=== PATIENT | female | born 1990 | race Caucasian/White ===

== ENCOUNTER 2017-01-12 20:31 | Emergency (ER) | payer OTHER ==
[2017-01-12 20:44] VITALS: TEMP 98.2
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
[2017-01-12 22:23] VITALS: BP 114/77; PULSE 69; RESP 16; O2SAT 95
== END 2017-01-12 22:23 | disposition home or self-care (01) ==
DX: S39.013A Strain of muscle, fascia and tendon of pelvis, initial encounter (principal); X58.XXXA Exposure to other specified factors, initial encounter; Y99.8 Other external cause status